=== PATIENT | female | born 1955 | race African-American/Black ===

== ENCOUNTER 2018-05-08 06:32 | Day surgery (SDC) | payer OTHER ==
[2018-04-30 16:19] VITALS: BMI 34.8
[2018-05-08] MEDS ORDERED: oxyCODONE HCL 5 MG TABLET PO PRN (09:02)
[2018-05-08] MEDS ORDERED: ONDANSETRON 4 MG/2 ML VIAL IVPUSH PRN (09:02)
[2018-05-08] MEDS ORDERED: LACTATED RINGERS SOLUTION 1,000 ML IV SCH (09:15)
[2018-05-08] MEDS ORDERED: MIDAZOLAM HCL 2 MG/2 ML SINGLE DOSE VIAL ONE (09:24)
[2018-05-08] MEDS ORDERED: ONDANSETRON 4 MG/2 ML VIAL ONE ×2 (09:27→11:23)
[2018-05-08] MEDS ORDERED: LIDOCAINE HCL/PF 2% SDV 5ML VIAL ONE (09:27)
[2018-05-08] MEDS ORDERED: DEXAMETHASONE SOD PHOSPHATE 4 MG/1 ML VIAL ONE ×2 (09:31→12:14)
[2018-05-08] MEDS ORDERED: ceFAZolin SODIUM 1 GM VIAL ONE (09:33)
[2018-05-08] MEDS ORDERED: ceFAZolin SODIUM 1 GM VIAL IVPB ONE (09:35)
[2018-05-08] MEDS ORDERED: KETOROLAC TROMETHAMINE 30 MG/1 ML VIAL ONE ×2 (09:37→13:38)
[2018-05-08] MEDS ORDERED: BUPIVACAINE HCL/PF 2.5 MG/ML - 30 ML VIAL IJ ONE (10:02)
[2018-05-08] MEDS ORDERED: methylPREDNISolone ACET (DEPO) 40 MG/1 ML VIAL NR ONE (10:15)
[2018-05-08] MEDS ORDERED: BUPIVACAINE HCL/PF 0.25% (2.5MG/ML) 10 ML VIAL IJ ONE (10:15)
[2018-05-08] MEDS ORDERED: PROPOFOL 20 ML ONE (10:33)
--- NOTE | 2018-05-08 10:53 | OP ---
Operative Note - Note: Operative Date: 05/08/18 Pre-Operative Diagnosis: Left knee internal derangement and osteoarthritis Operation: SALK. I&D Findings: Chondromalacia patella, trochlear sulcus, medial femoral condyle with bone exposed MFC OCD Tourniquet Pressure: 350mmHg Tourniquet Time: 15 minutes Post-Operative Diagnosis: Same as Pre-op Surgeon: Kam Back Ultrasound Technol: Kana Back Anesthesiologist/PET CARE TECHNICIAN: Oriana Davies Anesthesia: General Estimated Blood Loss (mls): 0 Fluid Volume Replaced (mls): 500 Operative Report Dictated: Yes
[2018-05-08 13:14] VITALS: TEMP 97.8
--- NOTE | 2018-05-08 13:34 | OP ---
DATE OF OPERATION: 05/08/2018 SURGEON: Kam Back MD SLEEP MANAGER: Kana Back MD PREOPERATIVE DIAGNOSIS: Tricompartmental osteoarthritis, left knee, with medial meniscal tear. POSTOPERATIVE DIAGNOSIS: Tricompartmental osteoarthritis, left knee. ANESTHESIA: Conscious sedation with spinal anesthesia. ANTIBIOTICS GIVEN: Kefzol 2 g given preoperatively. OPERATION PERFORMED: Arthroscopy and arthroscopic washout. OPERATION IN DETAIL: Patient was correctly identified, brought into the operating room. Left lower extremity prepped, free draped in the routine manner with Betadine scrub solution, wiped with alcohol, and DuraPrep applied. Left free drape with a leg-roberson in situ, the limb was evaluated as well as the anterolateral portal inserted. 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 The retropatellar surface and trochlear groove concomitantly revealed osteophyte formation, significant degree of degenerative cartilaginous changes in keeping with unabridged level 4 changes accordingly. The femoral condyle showed severe degeneration both in the femoral condyle as well as the tibial plateau. The meniscus revealed evidence of interfibrillar marginal tearing, which was left well alone. 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 This was shaved appropriately. The lateral femoral condyle and lateral joint space revealed Outerbridge 1 and 2 changes, fibrillar changes really noted. The lateral meniscus was intact. Intercondylar notch was normal with a normal ACL. The lateral popliteal hiatus was normal with no loose fragments within the confines of the space. The knee was thoroughly lavaged. The ports were closed with 3-0 nylon. Plan for ultimate total knee arthroplasty, but gel supplementation and physical therapy will be advised with associated weight reduction. MD HEMANTH Horowitz/[id number] MTDD
[2018-05-08 14:08] VITALS: BP 137/74
[2018-05-08 14:24] VITALS: PULSE 86
[2018-05-09] MEDS ORDERED: PATIENT'S OWN MEDICATION (NON-FORMULARY) (Amlodipine Bes/Olmesartan Med [Azor 10-40 Mg Tab PO SCH (10:00)
== END 2018-05-08 14:58 | disposition home or self-care (01) ==
LOC: FASU 06:32
PROVIDERS: ATTEND Orthopaedic Surgery Orthopaedic Surgery of the Spine
PROC: 0SJD4ZZ Inspection of Left Knee Joint, Percutaneous Endoscopic Approach (ICD-10-PCS; principal; 2018-05-08 08:30)
DX: M17.9 Osteoarthritis of knee, unspecified (principal)
CPT/HCPCS: 94760

== ENCOUNTER 2019-03-17 08:00 | Inpatient (IN) | payer OTHER ==
[2019-03-08 11:54] VITALS: BMI 33.3
[2019-03-17] MEDS ORDERED: VANCOMYCIN 1,000 MG VIAL (RESTRICTED TO ID ONLY) ONE (14:15)
[2019-03-17] MEDS ORDERED: MIDAZOLAM HCL 2 MG/2 ML SINGLE DOSE VIAL ONE (14:25)
[2019-03-17] MEDS ORDERED: PROPOFOL 20 ML ONE (14:25)
[2019-03-17] MEDS ORDERED: BUPIVACAINE LIPOSOME/PF (EXPAREL) 266 MG/20 ML VIAL ONE (14:32)
[2019-03-17] MEDS ORDERED: ceFAZolin SODIUM 1 GM VIAL ONE ×2 (15:13→16:56)
[2019-03-17] MEDS ORDERED: TRANEXAMIC ACID 1000 MG/10 ML VIAL ONE ×2 (15:13→16:56)
[2019-03-17] MEDS ORDERED: ONDANSETRON 4 MG/2 ML VIAL ONE ×2 (16:30→17:40)
[2019-03-17] MEDS ORDERED: DEXAMETHASONE SOD PHOSPHATE 4 MG/1 ML VIAL ONE (16:30)
[2019-03-17] MEDS ORDERED: HYDROmorphone HCL/PF 1 MG/ML AMP ONE (16:55)
[2019-03-17] MEDS ORDERED: VANCOMYCIN 1,500 MG in DEXTROSE 5%-WATER - 250 ML IVPB ONE (17:08)
[2019-03-17] MEDS ORDERED: MAG HYDROX/AL HYDROX/SIMETH 30 ML UNIT-DOSE CUP PO PRN (17:08)
--- NOTE | 2019-03-17 17:08 | OP ---
Operative Note - Note: Operative Date: 03/17/19 Pre-Operative Diagnosis: OA Left KNEE Operation: Left posterior stabilized TKR (Ann) Surgeon: Kma Back Business Job Titles: Kana Back Anesthesiologist/GEOPHYSICS PROFESSOR: Domenico Kim Anesthesia: General Specimens Removed: Bone soft tissue left knee Estimated Blood Loss (mls): 0 Drains & Tubes with Location: HVac 1/8 inch Operative Report Dictated: Yes
[2019-03-17] MEDS ORDERED: LACTATED RINGERS SOLUTION 1,000 ML IV SCH (17:15)
[2019-03-17] MEDS ORDERED: oxyCODONE HCL 5 MG TABLET PO PRN (17:37)
--- NOTE | 2019-03-17 17:39 | PN ---
Progress Note (short form) - Note Progress Note: 63F s/p LEFT total knee replacement POD #0. -Pain control. -DVT PPx: -Chemical: ASA 81mg PO BID x 6 weeks post-op. -Mechanical: KENNY's, SCD's. -Incentive spirometry q15 min. -PT/OT/Rehab, OOB. -WBAT RLE. -Post-op Ancef x 3 doses. -f/u post-op TOV: 8 hours max. -f/u AM labs. -f/u drain output. -Diet as tolerated. -Care per medical hospitalist team. -Discharge planning: f/u [facility] [place] [facility] 03/25/2019; call for appointment . -Will follow. Kam Back MD (Orthopaedic Surgery).
[2019-03-17] MEDS: ONDANSETRON 4 MG/2 ML VIAL IVPUSH PRN (17:42)
[2019-03-17] MEDS ORDERED: CEFAZOLIN 1 GM/D5W 50 ML IVPB SCH (18:00)
[2019-03-17] MEDS ORDERED: HYDROmorphone HCL CARPU-JECT 1 MG/1 ML DISP.SYRIN IVPUSH PRN (18:18)
--- NOTE | 2019-03-17 19:53 | OP ---
DATE OF OPERATION: 03/17/2019 SURGEON: Kam Back M.D. INSTRUCTOR BUS TROLLEY AND TAXI: Kana Back M.D. PREOPERATIVE DIAGNOSIS: Left tricompartment osteoarthritis of the knee with fixed varus deformity. POSTOPERATIVE DIAGNOSIS: Left tricompartment osteoarthritis of the knee with fixed varus deformity. OPERATION: Left posterior stabilized cemented total knee arthroplasty (Ann). ANESTHESIA: Peripheral nerve block and general anesthesia. ANTIBIOTICS GIVEN: 2 g Kefzol, 1 g vancomycin preoperative; 1 g Kefzol given at the end of the procedure. TOURNIQUET TIME: Approximately 85 minutes. OPERATION DETAILS: The patient was correctly identified, brought in operating room. Left lower extremity was prepped, draped in the routine manner with Betadine scrub solution, wiped off with alcohol, DuraPrep applied. Imaging was available for intraoperative evaluation. Timeout was called. Midline incision utilized on a bloodless field. The incision was taken through the skin, subcutaneous tissue, and quadriceps mechanism along the medial aspect of the proximal tibia. The incision was made to bone along the medial side just alongside the tibial tubercle, and then just medial to the patella ligament, curving then around to the inferior border of vastus medialis. The vastus medialis was then from the surrounding tissues by sharp dissection of the epimysium of the muscle off the actual muscle itself, and then extending the entire round edge of the muscle to the intermuscular septum, stripping the muscle in the stripping angle off the intermuscular septum and then extending onwards to linea aspera. Hemostasis achieved throughout this part of the procedure. A blunt hammer was placed under the vastus muscles to the left side of the femur to help keep the patella out of harm's way. The entire quadriceps mechanism successfully loosened. The suprapatellar pouch was then transected, and the superior aspect of the femoral bone bed was cleared of soft tissue using a unipolar Bovie. The knee was flexed and externally rotated. This brought about easy access to the proximal tibia. The cruciate ligaments were transected. The anterior horn of the lateral meniscus was transected and a Hohmann placed under the surface of the lateral meniscus with hyperflexion of the knee to gain easy access to the tibial surface. The extramedullary jig applied. This was placed alongside from the middle portion of the eminence to the middle of the talus. The appropriate jig device using Gadiel Wings as well as the stylus a full resection of the tibial bone bed was performed and approximately 2 mm of bone resected off the proximal tibial plateau with nice flat top surface. A medial cortical bone which was dense was drilled with multiple drill holes for better cementation at a later stage. The femur was then exposed. The femoral starter jig drill inserted into the area just above the intracondylar notch. The jig was set to 4 degrees of varus and 3 degrees of external rotation. Once this had been performed, the setting of this jig to resect only 8 mm of bone was performed. This cut was made. The jigs were removed, and the alignment of the bone cut surfaces was re-shaded to reveal that the actual knee would be straight and could accept either a 9 or an 11-mm spacer. Flexion and extension gaps were even at 11 mm. The knee was flexed and appropriate jig was inserted. This is the cutting block for the femur. All cuts were made off the jig to size a size 4 femur and a size 4 tibial tray had been sized, the appropriate tibial block was applied to the surface of the tibia. It lined up to the actual talus. It was fixed solid into position with appropriate pins and the large drill and broach pins inserted into the bone bed guided by the actual jig device. The trial femoral component size 4 was inserted, as it was a size 4 tibial tray, and the size 9 mm polyethylene liner swapped for an 11 mm polyethylene liner for better articulation both in extension and flexion, complete stability noted throughout in flexion/extension both in varus as well as in sagittal plane testing. Shock test with a [place] placed in the femoral intercondylar space on the medial side revealed stable construct at this level. Wounds were then thoroughly lavaged with pulse lavage. Once all bone bed was free of fat and blood product, cementing was in 1 stage, all components cemented femur, tibia, and patella button. All extraneous cement removed. Cement cured and further extraneous cement was removed. The stent with the 11-mm polyethylene liner for posterior stabilized implant was then inserted. Patella tracking was excellent. Range of movement 0 to 120 degrees, and and stability as outlined above was normal. A negative thumb test noted. Closure: the retinacular tissues with number 1 Vicryl, 2 for the subvastus closure. The subcutaneous tissue with 1 and 2-0 Vicryl, skin 3-0 Monocryl with Steri-Strips. Drain is 1/8-inch Hemovac brought out laterally draining the subvastus bed appropriately. MD HEMANTH Horowitz/[id number]
--- NOTE | 2019-03-17 20:27 | CONSULT ---
Consult Consult Specialty:: IM Reason for Consultation:: post-op medical management - History of Present Illness Chief Complaint: left knee pain. denies SOB, nausea, palpitations, chest pain - History Source History Provided By: Patient, Family Member - Past Medical History Cardio/Vascular: Yes: HTN - Alcohol/Substance Use Hx Alcohol Use: No - Smoking History Smoking history: Never smoked Home Medications - Allergies Allergies/Adverse Reactions: Allergies Allergy/AdvReac Type Severity Reaction Status Date / Time No Known Allergies Allergy Verified 03/08/19 11:48 - Home Medications Home Medications: Ambulatory Orders Amlodipine Bes/Olmesartan Med [Geneva 10-40 mg Tablet] 1 each PO DAILY 04/30/18 Family Disease History - Family Disease History Family History: Unremarkable Review of Systems - Review of Systems Eyes: reports: No Symptoms HENT: reports: No Symptoms Neck: reports: No Symptoms Cardiovascular: reports: No Symptoms Respiratory: reports: No Symptoms Musculoskeletal: reports: Joint Pain Integumentary: reports: No Symptoms Neurological: reports: No Symptoms Endocrine: reports: No Symptoms Hematology/Lymphatic: reports: No Symptoms Psychiatric: reports: No Symptoms Pain Intensity: 7 Physical Exam Vital Signs: Vital Signs Temperature 98.5 F 03/17/19 19:09 Pulse Rate 74 03/17/19 19:09 Respiratory Rate 16 03/17/19 19:09 Blood Pressure 133/56 L 03/17/19 19:09 O2 Sat by Pulse Oximetry (%) 100 03/17/19 19:09 Constitutional: Yes: Well Nourished, No Distress, Calm Eyes: Yes: WNL HENT: Yes: WNL Neck: Yes: WNL Cardiovascular: Yes: WNL Respiratory: Yes: WNL Gastrointestinal: Yes: WNL Renal/: Yes: WNL Musculoskeletal: Yes: Joint Stiffness Extremities: Yes: WNL Edema: No Peripheral Pulses WNL: Yes Integumentary: Yes: WNL Wound/Incision: Yes: Clean/Dry, Well Approximated, Dressing Dry and Intact Neurological: Yes: WNL ...Motor Strength: WNL Psychiatric: Yes: WNL Assessment/Plan 63F s/p LEFT total knee replacement POD #0. pain management. incentive spirometry. -GI, DVT prophylaxis. KENNY's. no chemical prophylaxis. -HTN: cont amlodipine, valsartan -oral diet when more awake, + flatus -PT/OT/OOB as tolerated -AM labs -ID: covered ritu-operatively with Ancef. -assessment and plan discussed with Pt and son at bedside
[2019-03-17] MEDS: SENNOSIDES/DOCUSATE COMBO (SENNA PLUS) TABLET (UD) PO SCH (21:50)
[2019-03-17] MEDS: ASPIRIN COATED 81 MG TABLET.EC PO SCH (21:50)
[2019-03-17] MEDS ORDERED: GABAPENTIN 300 MG CAPSULE (FP) PO SCH (22:00)
[2019-03-17] MEDS ORDERED: ASPIRIN 325 MG TABLET PO SCH (22:00)
[2019-03-17] MEDS: oxyCODONE HCL 10 MG SUSTAINED ACTING TABLET PO SCH (22:37)
[2019-03-17] MEDS: ceFAZolin 2 GRAM PREMIX BAG IVPB SCH (22:38)
[2019-03-17] MEDS: ACETAMINOPHEN 325 MG TABLET (FP) PO SCH (22:45)
[2019-03-18] MEDS: ceFAZolin 2 GRAM PREMIX BAG IVPB SCH ×4 (00:47→14:52)
[2019-03-18] MEDS ORDERED: VANCOMYCIN 1 GM in D5W (PRE-DOCKED) 1,000 MG/250 ML IVPB ONE (02:00)
[2019-03-18] MEDS: oxyCODONE HCL 5 MG TABLET PO PRN ×2 (02:06→07:59)
[2019-03-18] MEDS: ACETAMINOPHEN 325 MG TABLET (FP) PO SCH ×5 (06:06→22:44)
--- NOTE | 2019-03-18 08:01 | PN ---
Progress Note (short form) - Note Progress Note: POD #1 S/P L TKA No acute events over night per RN notes. Patient is alert. Sitting in chair at bedside. C/o incisional pain. Adequate pain management with meds ordered. Denies n/v/f/c, CP, SOB or MELO. Last Vital Signs Temp Pulse Resp BP Pulse Ox 98.2 F 90 18 107/56 L 94 L 03/18/19 06:00 03/18/19 06:00 03/18/19 06:00 03/18/19 06:00 03/18/19 06:00 PE Gen: nad LLE: dressing c/d/i. SCDs bilat. Drain 160 mL (serosang). GMNVI Problem List - Problems (1) Status post total left knee replacement using cement Assessment/Plan: - Pain control. -DVT PPx: -Chemical: ASA 81 mg po BID x 6 weeks -Mechanical: KENNY's, SCD's -Incentive Spirometry. -PT/OT/Rehab, OOB. -WBAT LLE -f/u drain output -f/u am labs. -Discharge planning: f/u [facility] [place] office a[employer] airspace control officer for appointment : Above plan discussed with Dr. Back and agrees Code(s): Z96.652 - PRESENCE OF LEFT ARTIFICIAL KNEE JOINT (2) Left knee DJD Code(s): M17.12 - UNILATERAL PRIMARY OSTEOARTHRITIS, LEFT KNEE
[2019-03-18 08:38] LABS: HEMATOCRIT 32.4 % (32.4-45.2); HEMOGLOBIN 11.3 GM/dl (10.7-15.3); MCH 29.7 pg (25.7-33.7); MCHC 34.8 g/dl (32.0-36.0); MEAN CELL VOLUME 85.3 fl (80-96); MEAN PLT VOLUME 10.6 fl (7.5-11.1); PLATELET COUNT 248 K/MM3 (134-434); RBC 3.79 M/mm3 (3.60-5.2); RDW 13.3 % (11.6-15.6); WHITE BLOOD COUNT 14.9 K/mm3 (4.0-10.8)
[2019-03-18 08:58] LABS: CALCIUM 9.2 mg/dl (8.5-10); CREATININE 0.7 mg/dl (0.55-1.3); POTASSIUM 4.5 mmol/L (3.5-5.1)
[2019-03-18] MEDS: ONDANSETRON 4 MG/2 ML VIAL IVPUSH PRN (08:59)
[2019-03-18] MEDS: ASPIRIN COATED 81 MG TABLET.EC PO SCH ×2 (09:00→21:36)
[2019-03-18] MEDS: PANTOPRAZOLE 40 MG TABLET (FP) PO SCH (09:00)
[2019-03-18] MEDS: SENNOSIDES/DOCUSATE COMBO (SENNA PLUS) TABLET (UD) PO SCH ×2 (09:00→21:36)
[2019-03-18] MEDS: VALSARTAN 160 MG TABLET (UD) PO SCH (09:01)
[2019-03-18] MEDS: amLODIPine BESYLATE 10 MG TABLET (FP) PO SCH (09:01)
[2019-03-18] MEDS: oxyCODONE HCL 10 MG SUSTAINED ACTING TABLET PO SCH ×2 (09:01→21:36)
[2019-03-18] MEDS ORDERED: PATIENT'S OWN MEDICATION (NON-FORMULARY) (Amlodipine Bes/Olmesartan Med [Azor 10-40 Mg Tab PO SCH (10:00)
--- NOTE | 2019-03-18 17:45 | PN ---
Progress Note, Physician Chief Complaint: left knee pain - Current Medication List Current Medications: Active Medications Acetaminophen (Tylenol -) 650 mg PO Q6H [facility] Stop: 03/20/19 17:44 Last Admin: 03/18/19 12:18 Dose: 650 mg Al Hydroxide/Mg Hydroxide (Mylanta Oral Suspension -) 30 ml PO Q4H PRN PRN Reason: DYSPEPSIA Amlodipine Besylate (Norvasc -) 10 mg PO DAILY [facility] Last Admin: 03/18/19 09:01 Dose: Not Given Aspirin (Ecotrin -) 81 mg PO BID [facility] Last Admin: 03/18/19 09:00 Dose: 81 mg Hydromorphone HCl (Dilaudid Injection -) 0.5 mg IVPUSH [id number] PRN PRN Reason: PAIN-PACU ORDER X 4 DOSES ONLY Ondansetron HCl (Zofran Injection) 4 mg IVPUSH Q6H PRN PRN Reason: NAUSEA Last Admin: 03/18/19 08:59 Dose: 4 mg Oxycodone HCl (Roxicodone -) 5 mg PO Q3H PRN PRN Reason: PAIN LEVEL 1-5 Oxycodone HCl (Roxicodone -) 10 mg PO Q3H PRN PRN Reason: PAIN LEVEL 6-10 Last Admin: 03/18/19 07:59 Dose: 10 mg Oxycodone HCl (Oxycontin -) 10 mg PO BID [facility] Stop: 03/20/19 17:38 Last Admin: 03/18/19 09:01 Dose: Not Given Pantoprazole Sodium (Protonix -) 40 mg PO DAILY [facility] Last Admin: 03/18/19 09:00 Dose: 40 mg Senna/Docusate Sodium (Pericolace -) 2 tablet PO BID [facility] Last Admin: 03/18/19 09:00 Dose: 2 tablet Valsartan (Diovan -) 320 mg PO DAILY [facility] Last Admin: 03/18/19 09:01 Dose: Not Given - Objective Vital Signs: Vital Signs Temperature 99.1 F 03/18/19 14:11 Pulse Rate 100 H 03/18/19 14:11 Respiratory Rate 18 03/18/19 14:11 Blood Pressure 128/57 L 03/18/19 14:11 O2 Sat by Pulse Oximetry (%) 96 03/18/19 14:11 Constitutional: Yes: Well Nourished, No Distress, Calm Eyes: Yes: WNL HENT: Yes: WNL Neck: Yes: WNL Cardiovascular: Yes: WNL Respiratory: Yes: WNL Gastrointestinal: Yes: WNL Genitourinary: Yes: WNL Musculoskeletal: Yes: Joint Stiffness Extremities: Yes: WNL Edema: No Peripheral Pulses WNL: Yes Integumentary: Yes: WNL Wound/Incision: Yes: Clean/Dry, Well Approximated Neurological: Yes: WNL ...Motor Strength: WNL Psychiatric: Yes: WNL Labs: CBC, BMP 03/18/19 06:50 03/18/19 06:50 Assessment/Plan 63F s/p LEFT total knee replacement POD #1. pain management. incentive spirometry. -GI, DVT prophylaxis. KENNY's. no chemical prophylaxis. -HTN: cont amlodipine, valsartan -oral diet well tolerated. + flatus. -PT/OT/OOB as tolerated -labs and meds reviewed. -ID: covered ritu-operatively with Ancef. -assessment and plan discussed with Pt and son at bedside
[2019-03-18] MEDS: traMADol HCL 50 MG TABLET PO PRN ×2 (18:37→23:37)
[2019-03-19] MEDS: ACETAMINOPHEN 325 MG TABLET (FP) PO SCH ×2 (05:56→11:44)
--- NOTE | 2019-03-19 07:19 | PN ---
Progress Note (short form) - Note Progress Note: POD #2 s/p Left TKR Alert. Sitting in chair at bedside with ice pack on her knee. PT notes reviewed. Voiding spontaneously. Tolerating PO diet. Denies n/v/f/c, CP, SOB or MELO. Last Vital Signs Temp Pulse Resp BP Pulse Ox 98.9 F 102 H 19 119/54 L 98 16/ 03:00 03/19/19 03:00 03/19/19 03:00 03/19/19 03:00 03/19/19 07:06 24 hour Output 03/18/19 03/18/19 03/18/19 03/19/19 06:00 14:50 19:38 Drain 160 150 40 20 Gen: nad LE: SCDs bilat. RLE unremarkable. LLE with mild swelling. knee flexion to 90 degrees Problem List - Problems (1) Status post total left knee replacement using cement Assessment/Plan: POD #2 S/P L TKA - Pain control. -DVT PPx: -Chemical: ASA 81 mg po BID x 6 weeks -Mechanical: KENNY's, SCD's -Incentive Spirometry. -PT/OT/Rehab, OOB. -WBAT LLE -f/u drain output 30 mins after PT, if less than 30cc will dc drain -Discharge planning: f/u [facility] [place] office hr shared services consultant for appointment : Patient states she wants to go home...no rehab Above plan discussed with Dr. Back and agrees Kam Back MD (Orthopaedic Surgery) Code(s): Z96.652 - PRESENCE OF LEFT ARTIFICIAL KNEE JOINT (2) Left knee DJD Code(s): M17.12 - UNILATERAL PRIMARY OSTEOARTHRITIS, LEFT KNEE
[2019-03-19 07:58] LABS: HEMOGLOBIN 9.6 GM/dl (10.7-15.3); MCH 28.5 pg (25.7-33.7); MEAN CELL VOLUME 86.4 fl (80-96); MEAN PLT VOLUME 10.9 fl (7.5-11.1); PLATELET COUNT 231 K/MM3 (134-434); RBC 3.35 M/mm3 (3.60-5.2); RDW 13.5 % (11.6-15.6); WHITE BLOOD COUNT 14.6 K/mm3 (4.0-10.8)
[2019-03-19] MEDS: SENNOSIDES/DOCUSATE COMBO (SENNA PLUS) TABLET (UD) PO SCH (09:24)
[2019-03-19] MEDS: ASPIRIN COATED 81 MG TABLET.EC PO SCH (09:24)
[2019-03-19] MEDS: amLODIPine BESYLATE 10 MG TABLET (FP) PO SCH (09:24)
[2019-03-19] MEDS: PANTOPRAZOLE 40 MG TABLET (FP) PO SCH (09:24)
[2019-03-19] MEDS: VALSARTAN 160 MG TABLET (UD) PO SCH (09:24)
[2019-03-19] MEDS: oxyCODONE HCL 10 MG SUSTAINED ACTING TABLET PO SCH (10:00)
--- NOTE | 2019-03-19 11:56 | DS ---
Physical Exam: SUBJECTIVE: Patient seen and examined and note written earlier this morning ( please refer to it) OBJECTIVE: Vital Signs Temperature 99.3 F 03/19/19 09:38 Pulse Rate 108 H 03/19/19 09:38 Respiratory Rate 19 03/19/19 09:38 Blood Pressure 122/49 L 03/19/19 09:38 O2 Sat by Pulse Oximetry (%) 96 03/19/19 09:38 PHYSICAL EXAM GENERAL: The patient is awake, alert, and fully oriented, in no acute distress. HEAD: Normal with no signs of trauma. EYES: PERRL, extraocular movements intact, sclera anicteric, conjunctiva clear. ENT: Ears normal, nares patent, oropharynx clear without exudates, moist mucous membranes. NECK: Trachea midline, full range of motion, supple. LUNGS: Breath sounds equal, clear to auscultation bilaterally, no wheezes, no crackles, no accessory muscle use. HEART: Regular rate and rhythm, S1, S2 without murmur, rub or gallop. ABDOMEN: Soft, nontender, nondistended, normoactive bowel sounds, no guarding, no rebound, no hepatosplenomegaly, no masses. EXTREMITIES: 2+ pulses, warm, well-perfused, no edema. NEUROLOGICAL: Cranial nerves II through XII grossly intact. Normal speech, gait not observed. PSYCH: Normal mood, normal affect. SKIN: dressing c/d/i LABS CBC,CMP WBC 14.6 K/mm3 (4.0-10.8) H 03/19/19 07:00 RBC 3.35 M/mm3 (3.60-5.2) L 03/19/19 07:00 Hgb 9.6 GM/dl (10.7-15.3) L 03/19/19 07:00 Hct 29.0 % (32.4-45.2) L 03/19/19 07:00 MCV 86.4 fl (80-96) 03/19/19 07:00 MCH 28.5 pg (25.7-33.7) 03/19/19 07:00 MCHC 33.0 g/dl (32.0-36.0) 03/19/19 07:00 RDW 13.5 % (11.6-15.6) 03/19/19 07:00 Plt Count 231 K/MM3 (134-434) 03/19/19 07:00 MPV 10.9 fl (7.5-11.1) 03/19/19 07:00 Sodium 135 mmol/L (136-145) L 03/18/19 06:50 Potassium 4.5 mmol/L (3.5-5.1) 03/18/19 06:50 Chloride 99 mmol/L (98-107) 03/18/19 06:50 Carbon Dioxide 27 mmol/L (21-32) 03/18/19 06:50 Anion Gap 9 MMOL/L (8-16) 03/18/19 06:50 BUN 13.0 mg/dl (7-18) 03/18/19 06:50 Creatinine 0.7 mg/dl (0.55-1.3) 03/18/19 06:50 Est GFR (CKD-EPI)AfAm 108.38 03/18/19 06:50 Est GFR (CKD-EPI)NonAf 93.51 03/18/19 06:50 Random Glucose 143 mg/dl (74-106) H 03/18/19 06:50 Calcium 9.2 mg/dl (8.5-10) 03/18/19 06:50 HOSPITAL COURSE: Date of Admission:03/17/19 Date of Discharge: 03/19/19 The patient was admitted to the Med-Surg Unit after an elective repair of their left knee DJD. Now, s/p left tkr. An xray was obtained in the OR and confirmed hardware placement in good position with no fractures or dislocations. The day of surgery, the patient ambulated the hallways with assistance. Narcotic and non-narcotic pain management control was achieved with an oral and IV approach. POD #2, the surgical drain was removed fully intact and without incident Delphine-operative IV ABX were administered. DVT prophylaxis was achieved with SCDs and early ambulation. The patient ambulated with Physical Therapy and no services were recommended upon discharge. Narcotic scripts and or muscle relaxants were checked with [place] DEVICE REPAIR TECHNICIAN prior to escribe. The discharge instructions and an oral pain management plan were reviewed with the patient. All questions answered. Above plan discussed with Dr. Back and agreed. Minutes to complete discharge: 35 Visit type - Case Type Case Type: Scheduled
--- NOTE | 2019-03-19 12:05 | DS ---
Physical Examination Vital Signs: Vital Signs Temperature 99.3 F 03/19/19 09:38 Pulse Rate 108 H 03/19/19 09:38 Respiratory Rate 19 03/19/19 09:38 Blood Pressure 122/49 L 03/19/19 09:38 O2 Sat by Pulse Oximetry (%) 96 03/19/19 09:38 Labs: CBC, BMP 03/19/19 07:00 03/18/19 06:50 Discharge Summary Reason For Visit: LEFT KNEE ARTHROPLASTY Current Active Problems Left knee DJD (Acute) Status post total left knee replacement using cement (Acute) Hospital Course: 63F s/p LEFT total knee replacement POD #2. pain management. incentive spirometry. -GI, DVT prophylaxis. KENNY's. no chemical prophylaxis. -HTN: cont amlodipine, valsartan -oral diet well tolerated. + flatus. -PT/OT/OOB as tolerated -labs and meds reviewed. -ID: covered ritu-operatively with Ancef. Condition: Stable - Instructions Diet, Activity, Other Instructions: Dr. Back Discharge Instructions for Knee Replacement Post Operative Instructions Physical activity Physical Therapist will come to your home for the first 5 days. You will be set up with outpatient PT at your first post-operative visit. Use assistive devices for ambulation at all times. Weight bearing as tolerated on your surgical side. Do not put pillow under knee. May put pillow under heel. Wound care Leave your surgical dressing in place. Do not change the dressing until seen by your surgeon in the office. No baths or showers. Do not submerge your incision. Do not apply any ointments or lotions to your incision. Please call the office if your dressing is soiled/dirty or is falling off. Apply Graduated Compression Stockings (TEDS) to both lower extremities - remove daily for hygiene ONLY. Diet There are no dietary restrictions. Eat healthy, high-fiber foods. Drink 6 to 8 glasses of liquid each day. This will assist in keeping your bowels are regular. Pain management Any pain prescription medication ordered should be taken as prescribed for moderate to severe pain. Do not take additional Tylenol while taking Percocet. Take Aspirin 81 mg two times a day for a total of 6 weeks to prevent blood clots. Call Dr. Back for any of the following: Severe pain not relieved by medication Fever of 101 or higher Excessive bleeding or drainage on dressing Inability to urinate If you experience chest pain or shortness of breath, please seek emergency care immediately. Please call the office at to confirm your post-op appointment for the week following surgery. Disposition: HOME - Home Medications Comprehensive Discharge Medication List: Ambulatory Orders Amlodipine Bes/Olmesartan Med [[place] 10-40 mg Tablet] 1 each PO DAILY 04/30/18
[2019-03-19 14:07] VITALS: BP 125/55; PULSE 107; TEMP 99.1
--- NOTE | 2019-03-22 12:44 | PATH ---
Surgical Pathology Report Patient Name: JAYESH HOPKINS Med. Rec. #: [id number] /Age/Gender: 1955 (Age: 63) / F Account: [id number] Location: [facility] Taken: 03/17/2019 Received: 03/17/2019 Reported: 03/22/2019 Physicians: Kam Back M.D. Specimen(s) Received LEFT KNEE BONES Clinical History Left knee osteoarthritis Final Diagnosis BONES, LEFT KNEE, TOTAL KNEE REPLACEMENT: DEGENERATIVE JOINT DISEASE. Electronically Signed Shiloh Dimas M.D. Gross Description Received in formalin labeled "bones left knee," is an 11.5 x 9.5 x 2.3 cm aggregate of multiple portions of bone and soft tissue. The tibial plateau measures 7.8 x 4.8 x 2.0 cm. There are no areas of eburnation identified. The articular surfaces are nathan-yellow and focally granular. The underlying trabecular bone is yellow and hard. Ab Initio Etl Developer sections are submitted in one cassette, following decalcification. 03/19/2019 [facility]03/19/2019
== END 2019-03-19 15:45 | disposition home or self-care (01) | DRG 470 ==
LOC: FM/S 10:00
PROVIDERS: ADMIT Orthopaedic Surgery Orthopaedic Surgery of the Spine; ATTEND Orthopaedic Surgery Orthopaedic Surgery of the Spine
PROC: 0SRD0J9 Replacement of Left Knee Joint with Synthetic Substitute, Cemented, Open Approach (ICD-10-PCS; principal; 2019-03-17 15:28)
DX: M17.12 Unilateral primary osteoarthritis, left knee (principal); I10 Essential (primary) hypertension; J45.909 Unspecified asthma, uncomplicated; R60.9 Edema, unspecified; L30.9 Dermatitis, unspecified; K21.9 Gastro-esophageal reflux disease without esophagitis; D35.2 Benign neoplasm of pituitary gland; K11.20 Sialoadenitis, unspecified
CPT/HCPCS: 36415; 73560-TC-LT-FY; 80048; 85027; 86803; 87389; 88304-TC; 88311-TC; 94760; 97116-GP; 97163-GP